=== PATIENT | male | born 1955 | race Caucasian/White ===

== ENCOUNTER 2017-05-16 15:07 | Inpatient (IN) | payer OTHER ==
[~2017-05-16] VITALS: Ht 172.7 cm; Wt 145.1 kg
[2017-05-16 15:07] VITALS: BP 187/116
[2017-05-16] MEDS ORDERED: ALBUTEROL SULFATE/IPRATROPIU 3 ML SOL IH ONE (15:15)
[2017-05-16] MEDS ORDERED: ACETAMINOPHEN EXTRA STRENGTH 500 MG TAB PO ONE (15:20)
[2017-05-16 15:27] VITALS: BP 187/116
[2017-05-16 15:53] LABS: BASOPHILS # (AUTO) 0.2 K/uL (0.00-0.22); BASOPHILS % (AUTO) 3.1 % (0.0-2.0); EOSINOPHILS % (AUTO) 0.1 % (0.0-4.0); HEMATOCRIT 49.7 % (36-52); LYMPHOCYTES # (AUTO) 0.5 K/uL (2.0-11.5); LYMPHOCYTES % (AUTO) 7.3 % (20.5-51.1); MEAN CORPUSCULAR HEMOGLOBIN 30 pg (27-31); MEAN CORPUSCULAR HGB CONC 32 g/dL (33-37); MEAN CORPUSCULAR VOLUME 93 fL (80-94); MONOCYTES # (AUTO) 0.1 K/uL (0.8-1.0); MONOCYTES % (AUTO) 1.2 % (1.7-9.3); NEUTROPHILS # (AUTO) 6.5 K/uL (1.8-7.7); NEUTROPHILS % (AUTO) 88.3 % (42.2-75.2); PLATELET COUNT (AUTO) 156 K/uL (140-450); RED BLOOD CELL COUNT(AUTO) 5.36 MIL/uL (4.20-6.10); WHITE BLOOD COUNT (AUTO) 7.3 K/uL (4.8-10.8)
[2017-05-16] MEDS ORDERED: ASPI81CT89 PO (15:54)
[2017-05-16] MEDS ORDERED: GLIP10TA3 PO (15:54)
[2017-05-16] MEDS ORDERED: METF500T PO (15:54)
[2017-05-16] MEDS ORDERED: ORE25 PO (16:05)
[2017-05-16] MEDS ORDERED: IBUP-1842 PO (16:08)
[2017-05-16 16:16] LABS: ALBUMIN 3.1 g/dL (3.4-5.0); ANION GAP 12.4 (8-16); CARBON DIOXIDE 26.8 mmol/L (21-32); CREATININE 1.3 mg/dL (0.7-1.3); POTASSIUM 4.2 mmol/L (3.5-5.1); TOTAL BILIRUBIN 0.6 mg/dL (0.0-1.0)
[2017-05-16 16:22] LABS: PROTHROMBIN TIME 11.5 secs (10.8-13.4)
[2017-05-16] MEDS ORDERED: SITA100T8 PO (16:22)
[2017-05-16] MEDS ORDERED: BENA40TA PO (16:22)
[2017-05-16] MEDS ORDERED: AMLO10TA1 PO (16:25)
[2017-05-16] MEDS ORDERED: FEXO180T82 PO (16:25)
[2017-05-16] MEDS ORDERED: BENZ-196 PO (16:29)
[2017-05-16] MEDS ORDERED: ALBU-118 IH (16:29)
[2017-05-16] MEDS ORDERED: INSULIN REGULAR, HUMAN 100 UNIT/ML VIAL SUBQ ONE (17:00)
[2017-05-16] MEDS ORDERED: PIPERACILLIN/TAZOBACTAM 4.5 GM in DEXTROSE 5% 100 ML IV ONE (17:35)
[2017-05-16] MEDS ORDERED: PIPERACILLIN/TAZOBACTAM 2.25 GM VIAL IV ONE (17:46)
[2017-05-16] MEDS ORDERED: HYDROcodone/APAP 7.5/325 MG 1 TAB PO PRN (18:10)
[2017-05-16] MEDS ORDERED: ACETAMINOPHEN 325 MG TAB PO PRN (18:10)
[2017-05-16] MEDS ORDERED: ONDANSETRON 4 MG/2 ML VIAL IM/IVP PRN (18:10)
[2017-05-16] MEDS ORDERED: DOCUSATE SODIUM 100 MG GELCAP PO PRN (18:10)
[2017-05-16] MEDS ORDERED: MORPHINE SULFATE 2 MG/ML SYR IVP PRN (18:10)
[2017-05-16] MEDS ORDERED: PIPERACILLIN/TAZOBACTAM 3.375 GM in DEXTROSE 5% 50 ML IV SCH (18:20)
[2017-05-16] MEDS ORDERED: ALBUTEROL HFA MDI 90 MCG/ACTUATION 8 GM INH PRN (18:20)
[2017-05-16] MEDS ORDERED: IBUPROFEN 400 MG TAB PO SCH (18:20)
[2017-05-16] MEDS ORDERED: IPRATROPIUM 0.02% 0.5 MG/2.5 ML NEBU INH PRN (18:25)
[2017-05-16] MEDS ORDERED: ALBUTEROL 0.083% 2.5 MG/3 ML NEBU INH PRN (18:25)
[2017-05-16] MEDS ORDERED: DEXTROSE 50% 50 ML SYR IVP PRN (18:30)
[2017-05-16 18:40] LABS: APPEARANCE,URINE CLEAR (CLEAR); BILIRUBIN,URINE NEGATIVE (NEGATIVE); BLOOD, URINE 1+ (NEGATIVE); COLOR,URINE YELLOW (YELLOW); LEUKOCYTE ESTERASE ,URINE NEGATIVE (NEGATIVE); NITRITE, URINE NEGATIVE (NEGATIVE); PH,URINE 5.5 (5.0-9.0); UGLUCOSE 3+ (NEGATIVE)
[2017-05-16 18:45] VITALS: BP 155/90
[2017-05-16 18:51] LABS: RBC,URINE 0-5 (RARE) /HPF (0-5); WBC,URINE 0-5 (RARE) /HPF (0-5)
[2017-05-16 18:52] LABS: YEAST,URINE Rare /HPF (None Seen)
[2017-05-16 19:16] LABS: BARBITURATE, URINE NEG. ng/ml (NEG <=200); BENZODIAZEPINE, URINE NEG. ng/mL (NEG <=200); CANNABINOID, URINE NEG. ng/mL (NEG <=50); COCAINE, URINE NEG. ng/mL (NEG <=300); OPIATE, URINE NEG. ng/mL (NEG <=2000); PHENCYCLIDINE SCREEN,URINE NEG. ng/mL (NEG <=25)
[2017-05-16 20:00] VITALS: BP 132/86
[2017-05-16] MEDS: NACL 0.9% 1,000 ML IV SCH (20:21)
[2017-05-16] MEDS: INSULIN LISPRO SLIDING SCALE 100 UNITS/ML VIAL SUBQ PRN ×2 (21:07→23:45)
[2017-05-16] MEDS: BLOOD GLUCOSE MONITORING 1 DEV DEV FS SCH (21:11)
[2017-05-17] VITALS (8 sets, daily range): BP systolic 0–131; BP diastolic 0–76
[2017-05-17] MEDS: NACL 0.9% 1,000 ML IV SCH ×4 (01:19→19:10)
[2017-05-17] MEDS: ALBUTEROL SULFATE/IPRATROPIU 3 ML SOL IH PRN ×4 (02:26→20:03)
[2017-05-17] MEDS ORDERED: CLINDAMYCIN 600 MG/4 ML VIAL ONE (04:51)
[2017-05-17] MEDS: CLINDAMYCIN 600 MG in DEXTROSE 5% 50 ML IV SCH ×3 (04:58→20:17)
[2017-05-17] MEDS: BLOOD GLUCOSE MONITORING 1 DEV DEV FS SCH ×4 (06:41→20:34)
[2017-05-17] MEDS: INSULIN LISPRO SLIDING SCALE 100 UNITS/ML VIAL SUBQ PRN ×3 (07:05→18:00)
[2017-05-17] MEDS: glipiZIDE 10 MG TAB PO SCH ×2 (07:10→16:30)
[2017-05-17] MEDS ORDERED: BENZONATATE 100 MG CAPLF PO PRN (07:25)
[2017-05-17 07:28] LABS: BASOPHILS # (AUTO) 0.1 K/uL (0.00-0.22); BASOPHILS % (AUTO) 1.5 % (0.0-2.0); EOSINOPHILS # (AUTO) 0.1 K/uL (0-0.4); EOSINOPHILS % (AUTO) 0.8 % (0.0-4.0); HEMATOCRIT 45.3 % (36-52); HEMOGLOBIN 14.8 g/dL (12.0-18.0); LYMPHOCYTES # (AUTO) 0.5 K/uL (2.0-11.5); LYMPHOCYTES % (AUTO) 7.4 % (20.5-51.1); MEAN CORPUSCULAR HEMOGLOBIN 30 pg (27-31); MEAN CORPUSCULAR HGB CONC 33 g/dL (33-37); MEAN CORPUSCULAR VOLUME 93 fL (80-94); MONOCYTES # (AUTO) 0.8 K/uL (0.8-1.0); MONOCYTES % (AUTO) 12.6 % (1.7-9.3); NEUTROPHILS % (AUTO) 77.7 % (42.2-75.2); PLATELET COUNT (AUTO) 162 K/uL (140-450); RED BLOOD CELL COUNT(AUTO) 4.88 MIL/uL (4.20-6.10); RED CELL DISTRIBUTION WIDTH 12.2 % (11.6-13.7); WHITE BLOOD COUNT (AUTO) 6.5 K/uL (4.8-10.8)
[2017-05-17 08:00] LABS: ANION GAP 9.6 (8-16); CARBON DIOXIDE 29.6 mmol/L (21-32); CREATININE 1.1 mg/dL (0.7-1.3); POTASSIUM 4.2 mmol/L (3.5-5.1)
[2017-05-17] MEDS: metFORMIN 500 MG TAB PO SCH ×2 (08:00→16:58)
[2017-05-17] MEDS: BUDESONIDE 0.5 MG/2 ML NEBU INH SCH ×3 (08:27→20:03)
[2017-05-17] MEDS ORDERED: [UNRECOGNIZED DRUG - REMARK] PO SCH (09:00)
[2017-05-17] MEDS: LORATADINE 10 MG TAB PO SCH (10:34)
[2017-05-17] MEDS: HYDROCHLOROTHIAZIDE 25 MG TAB PO SCH (10:34)
[2017-05-17] MEDS: LACTOBACILLUS RHAMNOSUS GG 1 EACH CAP PO SCH (10:34)
[2017-05-17] MEDS: FAMOTIDINE 20 MG TAB PO SCH (10:34)
[2017-05-17] MEDS: amLODIPine 5 MG TAB PO SCH (10:34)
[2017-05-17] MEDS: BENAZEPRIL 20 MG TAB PO SCH (10:35)
[2017-05-17] MEDS: ASPIRIN 81 MG TAB.CHEW PO SCH (10:35)
[2017-05-17] MEDS: LEVOFLOXACIN 750 MG/D5W PREMIX 150 ML IV SCH (10:37)
[2017-05-17] MEDS: INSULIN LANTUS 100 UNITS/ML 10 ML VIAL SUBQ SCH (10:51)
[2017-05-18] VITALS: BP 146/83
[2017-05-18] MEDS: NACL 0.9% 1,000 ML IV SCH ×4 (01:25→17:16)
[2017-05-18 04:00] VITALS: BP 130/63
[2017-05-18] MEDS: CLINDAMYCIN 600 MG in DEXTROSE 5% 50 ML IV SCH ×3 (04:41→20:21)
[2017-05-18] MEDS: BLOOD GLUCOSE MONITORING 1 DEV DEV FS SCH ×4 (06:40→20:21)
[2017-05-18] MEDS: INSULIN LISPRO SLIDING SCALE 100 UNITS/ML VIAL SUBQ PRN ×2 (06:41→12:45)
[2017-05-18 06:42] LABS: T4 (THYROXINE) 4.5 ug/dL (4.5-12.0)
[2017-05-18] MEDS: ALBUTEROL SULFATE/IPRATROPIU 3 ML SOL IH PRN ×2 (07:01→19:33)
[2017-05-18] MEDS: BUDESONIDE 0.5 MG/2 ML NEBU INH SCH ×2 (07:09→19:37)
[2017-05-18] MEDS: glipiZIDE 10 MG TAB PO SCH ×2 (07:26→17:16)
[2017-05-18 08:00] VITALS: BP 153/91
[2017-05-18] MEDS: metFORMIN 500 MG TAB PO SCH ×2 (08:00→16:56)
[2017-05-18] MEDS: HYDROCHLOROTHIAZIDE 25 MG TAB PO SCH (09:12)
[2017-05-18] MEDS: amLODIPine 5 MG TAB PO SCH (09:12)
[2017-05-18] MEDS: LORATADINE 10 MG TAB PO SCH (09:12)
[2017-05-18] MEDS: LACTOBACILLUS RHAMNOSUS GG 1 EACH CAP PO SCH (09:13)
[2017-05-18] MEDS: BENAZEPRIL 20 MG TAB PO SCH (09:13)
[2017-05-18] MEDS: FAMOTIDINE 20 MG TAB PO SCH (09:13)
[2017-05-18] MEDS: ASPIRIN 81 MG TAB.CHEW PO SCH (09:15)
[2017-05-18] MEDS: INSULIN LANTUS 100 UNITS/ML 10 ML VIAL SUBQ SCH (09:21)
[2017-05-18] MEDS: LEVOFLOXACIN 750 MG/D5W PREMIX 150 ML IV SCH (09:23)
[2017-05-18 12:00] VITALS: BP 136/88
[2017-05-18 16:00] VITALS: BP 152/92
[2017-05-18 19:43] VITALS: BP 129/78
[2017-05-19 00:35] VITALS: BP 142/76
[2017-05-19] MEDS: NACL 0.9% 1,000 ML IV SCH ×4 (00:35→21:59)
[2017-05-19 04:27] VITALS: BP 148/80
[2017-05-19] MEDS: CLINDAMYCIN 600 MG in DEXTROSE 5% 50 ML IV SCH ×3 (04:54→21:47)
[2017-05-19] MEDS: BLOOD GLUCOSE MONITORING 1 DEV DEV FS SCH ×4 (05:57→21:12)
[2017-05-19] MEDS: ALBUTEROL SULFATE/IPRATROPIU 3 ML SOL IH PRN (06:38)
[2017-05-19] MEDS: BUDESONIDE 0.5 MG/2 ML NEBU INH SCH ×2 (06:48→19:01)
[2017-05-19] MEDS: glipiZIDE 10 MG TAB PO SCH ×2 (06:53→16:30)
[2017-05-19 07:22] LABS: HEMATOCRIT 45.7 % (36-52); MEAN CORPUSCULAR HEMOGLOBIN 31 pg (27-31); MEAN CORPUSCULAR HGB CONC 33 g/dL (33-37); MEAN CORPUSCULAR VOLUME 94 fL (80-94); PLATELET COUNT (AUTO) 141 K/uL (140-450); RED BLOOD CELL COUNT(AUTO) 4.87 MIL/uL (4.20-6.10); RED CELL DISTRIBUTION WIDTH 12.4 % (11.6-13.7); WHITE BLOOD COUNT (AUTO) 8.2 K/uL (4.8-10.8)
[2017-05-19 07:35] LABS: ANION GAP 11.5 (8-16); CARBON DIOXIDE 29.5 mmol/L (21-32); CREATININE 0.9 mg/dL (0.7-1.3)
[2017-05-19 07:39] LABS: MAGNESIUM 2.1 mg/dL (1.8-2.4); PHOSPHORUS 4.1 mg/dL (2.5-4.9)
[2017-05-19 08:00] VITALS: BP 169/78
[2017-05-19] MEDS: metFORMIN 500 MG TAB PO SCH ×2 (08:00→17:00)
[2017-05-19 08:33] LABS: BASOPHILS % (MANUAL) 1 % (0-2); EOSINOPHILS % (MANUAL) 1 % (0-4); LYMPHOCYTES % (MANUAL) 18 % (20-46); MONOCYTES % (MANUAL) 8 % (5-12)
[2017-05-19] MEDS: LACTOBACILLUS RHAMNOSUS GG 1 EACH CAP PO SCH (09:27)
[2017-05-19] MEDS: LEVOFLOXACIN 750 MG/D5W PREMIX 150 ML IV SCH (09:27)
[2017-05-19] MEDS: HYDROCHLOROTHIAZIDE 25 MG TAB PO SCH (09:28)
[2017-05-19] MEDS: FAMOTIDINE 20 MG TAB PO SCH (09:29)
[2017-05-19] MEDS: LORATADINE 10 MG TAB PO SCH (09:29)
[2017-05-19] MEDS: amLODIPine 5 MG TAB PO SCH (09:29)
[2017-05-19] MEDS: ASPIRIN 81 MG TAB.CHEW PO SCH (09:29)
[2017-05-19] MEDS: BENAZEPRIL 20 MG TAB PO SCH (09:30)
[2017-05-19] MEDS: INSULIN LANTUS 100 UNITS/ML 10 ML VIAL SUBQ SCH (09:36)
[2017-05-19] MEDS ORDERED: FLUTICASONE NASAL 50 MCG/ACTUATION 16 GM BTL NS SCH (11:52)
[2017-05-19 12:00] VITALS: BP 149/90
[2017-05-19 16:00] VITALS: BP 155/91
[2017-05-19 20:00] VITALS: BP 122/86
[2017-05-20] VITALS: BP 160/86
[2017-05-20] MEDS: NACL 0.9% 1,000 ML IV SCH ×2 (03:25→09:40)
[2017-05-20 05:00] VITALS: BP 158/90
[2017-05-20] MEDS: CLINDAMYCIN 600 MG in DEXTROSE 5% 50 ML IV SCH (05:03)
[2017-05-20] MEDS: BLOOD GLUCOSE MONITORING 1 DEV DEV FS SCH ×2 (06:36→12:15)
[2017-05-20] MEDS: glipiZIDE 10 MG TAB PO SCH (06:36)
[2017-05-20] MEDS: ALBUTEROL SULFATE/IPRATROPIU 3 ML SOL IH PRN (07:09)
[2017-05-20] MEDS: BUDESONIDE 0.5 MG/2 ML NEBU INH SCH (07:09)
[2017-05-20 08:00] VITALS: BP 170/101
[2017-05-20] MEDS: metFORMIN 500 MG TAB PO SCH (08:00)
[2017-05-20] MEDS: amLODIPine 5 MG TAB PO SCH (08:28)
[2017-05-20] MEDS: ASPIRIN 81 MG TAB.CHEW PO SCH (08:28)
[2017-05-20] MEDS: LORATADINE 10 MG TAB PO SCH (08:29)
[2017-05-20] MEDS: LACTOBACILLUS RHAMNOSUS GG 1 EACH CAP PO SCH (08:29)
[2017-05-20] MEDS: HYDROCHLOROTHIAZIDE 25 MG TAB PO SCH (08:29)
[2017-05-20] MEDS: BENAZEPRIL 20 MG TAB PO SCH (08:30)
[2017-05-20] MEDS: FAMOTIDINE 20 MG TAB PO SCH (08:30)
[2017-05-20] MEDS: INSULIN LANTUS 100 UNITS/ML 10 ML VIAL SUBQ SCH (08:37)
[2017-05-20] MEDS: LEVOFLOXACIN 750 MG/D5W PREMIX 150 ML IV SCH (08:39)
[2017-05-20] MEDS ORDERED: FLUTICASONE NASAL 50 MCG/ACTUATION 16 GM BTL NS SCH (09:00)
[2017-05-20] MEDS ORDERED: METOPROLOL 50 MG TAB PO SCH (09:00)
[2017-05-20 10:13] LABS: BASOPHILS # (AUTO) 0.3 K/uL (0.00-0.22); BASOPHILS % (AUTO) 4.9 % (0.0-2.0); EOSINOPHILS % (AUTO) 0.8 % (0.0-4.0); HEMATOCRIT 46.6 % (36-52); HEMOGLOBIN 15.1 g/dL (12.0-18.0); LYMPHOCYTES # (AUTO) 0.5 K/uL (2.0-11.5); LYMPHOCYTES % (AUTO) 8.8 % (20.5-51.1); MEAN CORPUSCULAR HEMOGLOBIN 30 pg (27-31); MEAN CORPUSCULAR HGB CONC 33 g/dL (33-37); MEAN CORPUSCULAR VOLUME 93 fL (80-94); MONOCYTES # (AUTO) 0.4 K/uL (0.8-1.0); MONOCYTES % (AUTO) 6.9 % (1.7-9.3); NEUTROPHILS # (AUTO) 4.6 K/uL (1.8-7.7); NEUTROPHILS % (AUTO) 78.6 % (42.2-75.2); PLATELET COUNT (AUTO) 189 K/uL (140-450); RED BLOOD CELL COUNT(AUTO) 5.03 MIL/uL (4.20-6.10); WHITE BLOOD COUNT (AUTO) 5.8 K/uL (4.8-10.8)
[2017-05-20 10:38] LABS: CARBON DIOXIDE 29.7 mmol/L (21-32); CREATININE 0.9 mg/dL (0.7-1.3); POTASSIUM 3.7 mmol/L (3.5-5.1)
[2017-05-20] MEDS ORDERED: CLIN300C2 PO (11:31)
[2017-05-20] MEDS ORDERED: METO25TA PO (11:31)
[2017-05-20] MEDS ORDERED: LEVO750T2 PO (11:31)
[2017-05-20] MEDS ORDERED: LACT10CA PO (11:32)
[2017-05-20 12:00] VITALS: BP 146/83
== END 2017-05-20 13:00 | disposition home or self-care (01) | DRG 177 ==
LOC: MED 15:07 → MTU 18:14
PROVIDERS: ADMIT Family Medicine; ATTEND Family Medicine
PROC: 5A09357 Assistance with Respiratory Ventilation, Less than 24 Consecutive Hours, Continuous Positive Airway Pressure (ICD-10-PCS; principal; 2017-05-16)
PROC: 5A09357 Assistance with Respiratory Ventilation, Less than 24 Consecutive Hours, Continuous Positive Airway Pressure (ICD-10-PCS; 2017-05-17)
DX: J69.0 Pneumonitis due to inhalation of food and vomit (principal); E43 Unspecified severe protein-calorie malnutrition; J96.21 Acute and chronic respiratory failure with hypoxia; N17.0 Acute kidney failure with tubular necrosis; D68.59 Other primary thrombophilia; E66.01 Morbid (severe) obesity due to excess calories; E11.65 Type 2 diabetes mellitus with hyperglycemia; I24.8 Other forms of acute ischemic heart disease; J96.22 Acute and chronic respiratory failure with hypercapnia; Z68.42 Body mass index [BMI] 45.0-49.9, adult; I10 Essential (primary) hypertension; I73.9 Peripheral vascular disease, unspecified; M19.90 Unspecified osteoarthritis, unspecified site; E78.5 Hyperlipidemia, unspecified; Z82.49 Family history of ischemic heart disease and other diseases of the circulatory system; Z87.891 Personal history of nicotine dependence; Z83.3 Family history of diabetes mellitus; Z84.1 Family history of disorders of kidney and ureter
CPT/HCPCS: 36415; 36600; 70450; 71045; 71275; 80048; 80053; 80305; 81001; 82150; 82803; 82948; 83036; 83605; 83690; 83735; 83880; 84100; 84436; 84439; 84443; 84479; 84484; 85025; 85379; 85610; 85730; 87040; 87081; 93005; 93925; 93970; 94640; 94660; 97140; 99291; J1815; J1956; J2543; J3490; J7030; J7060; J7613; J7620; J7626; Q0092; Q9967